=== PATIENT | male | born 1955 | race African-American/Black ===

== ENCOUNTER → 2024-02-11 16:22 | Outpatient (REF) | payer MEDICARE, SELFPAY | LOC: CLAB 16:22 | PROVIDERS: ATTENDING PHYSICIAN Dermatology Dermatopathology | DX: L30.9 Dermatitis, unspecified (principal) | CPT/HCPCS: 87070; 87102; 87116; 87176; 87205 ==

== ENCOUNTER 2024-10-05 10:21 | Emergency (ER) | payer MEDICARE, SELFPAY ==
[2024-10-05 10:30] VITALS: BP 138/76
[2024-10-05 11:02] VITALS: BMI 23.5
[2024-10-05 11:33] VITALS: BP 167/85
--- NOTE | 2024-10-05 12:26 | EDRN ---
Donell George PA was in to see pt.
--- NOTE | 2024-10-05 12:28 | ED.GENMED ---
History of Present Illness
General
Chief Complaint: Musculo-Skeletal Complaint
Source: patient
Exam Limitations: none
Time Seen by Provider: 10/05/24 12:02
History of Present Illness
History of Present Illness:
69-year-old male presents complaining of persistent onset of right wrist pain. This started several weeks ago when he was in [place]. He was diagnosed with gout. He started on a prednisone taper and finished this 6 days ago. He was feeling
better at the end of the taper however since then the pain is slowly returned. He has a history of kidney transplant. He cannot tolerate NSAIDs. He was using tramadol for the pain however this did not help his discomfort
Past History
Past History
ED Past Medical History: Renal failure and Other (Chronic renal failure, kidney transplant October 2018, hypertension, ACL repair, ankle fractures, left previous forearm AV fistula, hyperlipidemia)
ED Past Surgical History: Other (Fistula)
Social History
Tobacco: Non-smoker
Alcohol: None
Personal:
Living: with family
Family History
Family History: Other (Noncontributory)
Phy Exam
Physical Exam
Physical Exam:
General: Well-appearing male no acute respiratory distress
HEENT: Normocephalic atraumatic
Heart: Regular rate and rhythm
Lungs: Clear
Musculoskeletal exam: Right wrist is swollen tender over the radiocarpal joint subtle erythematous hue. No lymphangitic streaking
Constitutional: No fever
Course
Vital Signs
Initial and Last Documented VS:
Initial Vital Signs
Temp Pulse Resp BP Pulse Ox
98.5 F 86 18 138/76 100
10/05/24 10:30 10/05/24 10:30 10/05/24 10:30 10/05/24 10:30 10/05/24 10:30
Last Documented Vital Signs
Temp Pulse Resp BP Pulse Ox
98.5 F 83 16 167/85 98
10/05/24 10:30 10/05/24 11:33 10/05/24 11:33 10/05/24 11:33 10/05/24 11:33
MDM/Problems Addressed
Differential Diagnosis Includes:
Right wrist pain with history of gout. This feels similar to prior gout attacks. No injury. No recent potential reason for septic joint. He is afebrile with stable vital signs. Suspect gout. Add another round of prednisone with something
stronger for pain. He has a splint. Stable for discharge with follow-up with family doctor.
*Critical Care Note
Total Time (30-74mins, 75-104mins- exclusive of procedures): Not Applicable
ED Attending Note
-
Portions of this chart may have been created with voice recognition software.� Occasional wrong word or��sound alike� substitutions may have occurred due to the inherent limitations of voice recognition software.
Discharge Plan
Departure
Patient Disposition: Home (Routine Discharge)
Date of Disposition: 10/05/24
Time of Disposition: 12:32
Patient with high blood pressure during this ER visit?: No
Discharge Problem:
Acute gout
Instructions: Muscle and Bone Pain (DC)
Prescriptions:
New
prednisone 20 mg tablet
40 mg PO DAILY 5 Days Qty: 10 0RF
hydrocodone-acetaminophen 5-325 mg tablet
1 tab PO TID PRN (Reason: Pain) Qty: 10 0RF
No Action
nifedipine 60 MG tablet extended release 24hr
60 mg PO BID
hydralazine 25 MG tablet
25 mg PO BID
calcium acetate 667 MG tablet
667 mg PO MEALS
prednisone 20 MG tablet
40 mg PO DAILY Qty: 10 0RF
oxycodone-acetaminophen 5 MG/325 MG tablet
1 tab PO Q4HPRN PRN (Reason: pain) Qty: 20 0RF
Referrals:
Fito Hoffman MD [Family Provider, Family Practice]
Activity Restrictions/Additional Instructions:
Use medicine as directed. Continue to use splint. Follow-up with your family doctor. Return if needed
Interventions
Interventions:
*Risk Screen - Suicide Last Done: 10/05/24 11:03
*General Assessment Last Done: 10/05/24 11:03
*Neglect/Abuse Screening Last Done: 10/05/24 11:03
*ED- Fall Risk Assessment Last Done: 10/05/24 11:03
*ED COVID-19 Vaccine History Last Done: 10/05/24 11:03
ED-Musculoskeletal Assessment Last Done: 10/05/24 11:09
Discharge Date and Time
Print Language: TUNISIAN
== END 2024-10-05 12:50 | disposition home or self-care (01) ==
LOC: EMR 10:21
PROVIDERS: EMERGENCY PHYSICIAN Emergency Medicine; FAMILY PHYSICIAN Family Medicine
DX: M10.9 Gout, unspecified (principal); M25.531 Pain in right wrist; M79.89 Other specified soft tissue disorders; I12.9 Hypertensive chronic kidney disease with stage 1 through stage 4 chronic kidney disease, or unspecified chronic kidney disease; N18.9 Chronic kidney disease, unspecified; Z94.0 Kidney transplant status; Z88.6 Allergy status to analgesic agent; Z88.1 Allergy status to other antibiotic agents; Z88.2 Allergy status to sulfonamides
CPT/HCPCS: 99283